=== PATIENT | male | born 1995 | race African-American/Black ===

== ENCOUNTER 2018-12-03 16:08 | Emergency (ER) | payer MEDICAID, SELFPAY ==
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
[2018-12-03] MEDS ORDERED: Ketorolac Tromethamine 30 MG/ML VIAL ONE (16:59)
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
== END 2018-12-03 18:09 | disposition home or self-care (01) ==
LOC: ERS 16:08
DX: S02.651A Fracture of angle of right mandible, initial encounter for closed fracture (principal); S02.2XXA Fracture of nasal bones, initial encounter for closed fracture; W50.0XXA Accidental hit or strike by another person, initial encounter
CPT/HCPCS: 70450; 70486; 96372; J1885

== ENCOUNTER 2018-12-06 10:46 | Day surgery (SDC) | payer MEDICAID ==
[2018-12-05 16:00] VITALS: BMI 25.2
[~2018-12-06 10:46] MED LIST: Dexamethasone 20 MG/5 ML VIAL ONE; Ketorolac Tromethamine 30 MG/ML VIAL ONE; Ondansetron PF 4 MG/2 ML Vial ONE; PROPOFOL 200 MG/20 ML VIAL ONE; Succinylcholine Chloride 20 MG/ML 10 ml SYRINGE FS ONE
[2018-12-06] MEDS ORDERED: Dexamethasone 4 mg/ml Vial ONE (11:12)
[2018-12-06] MEDS ORDERED: Clindamycin/D5W 900 mg/50 ml Premix Bag ONE (11:27)
[2018-12-06] MEDS ORDERED: Lidocaine 1% w/Epinephrine 1:100K 20 ML VIAL ONE (12:00)
[2018-12-06] MEDS ORDERED: Chlorhexidine Gluconate 15 ML UDCUP SSP ONE (12:03)
[2018-12-06] MEDS ORDERED: Fentanyl 250 MCG/5 ML VIAL ONE (12:23)
[2018-12-06] MEDS ORDERED: Oxymetazoline HCl 0.05% ( 15 ML ) ONE (12:23)
[2018-12-06] MEDS ORDERED: Bacitracin Zinc Ointment 30 gm TUBE ONE (14:48)
[2018-12-06] MEDS ORDERED: Promethazine HCl 25 MG/ML VIAL SLOW IVP PRN (15:25)
[2018-12-06] MEDS ORDERED: Ondansetron HCl/PF 4 MG/2 ML Vial IVP PRN (15:25)
[2018-12-06] MEDS ORDERED: Promethazine HCl 25 MG/ML VIAL IM PRN (15:25)
[2018-12-06] MEDS ORDERED: Fentanyl 100 MCG/2 ML VIAL ONE (15:27)
[2018-12-06] MEDS ORDERED: Promethazine HCl 25 MG/ML VIAL ONE (15:51)
[2018-12-06] MEDS ORDERED: Ondansetron PF 4 MG/2 ML Vial IVP PRN (15:55)
[2018-12-06] MEDS ORDERED: Morphine 4 MG/ML VIAL SLOW IVP PRN (15:55)
[2018-12-06] MEDS: Ibuprofen 100 MG/5 ML UDCUP PO SCH (18:04)
[2018-12-06] MEDS: D5 0.9% NS w/ 20 mEq KCl 1,000 ML IV SCH (18:05)
[2018-12-06] MEDS: Dexamethasone 4 mg/ml Vial SLOW IVP SCH ×2 (18:05→22:15)
--- NOTE | 2018-12-06 19:24 | CT ---
CT OF FACIAL BONES PERFORMED WITHOUT CONTRAST ENHANCEMENT: 12/06/18 COMPARISON: A 12/03/18 study. HISTORY: Followup of open reduction internal fixation of a mandibular fracture. Nasal bone fractures are again noted. Zygomatic arches are intact. Mucosal change within the sinuses are seen. There has been a fixation of the mandibular fracture with plate and screws. One plate extends across the angle of the mandible and holds this fracture in good position. The second plate holds the left p arasymphyseal fracture in place. Condyles are in normal position. IMPRESSION: Open reduction internal fixation of a mandibular fracture which appears to be in fairly good alignmen t. POS: [facility]
[2018-12-06] MEDS: Hydrocodone-Acetamin 15 ML UDCUP PO PRN ×2 (19:30→23:57)
[2018-12-06] MEDS: Clindamycin/D5W 900 MG in Premix Bag 1 BAG IVPB SCH (22:15)
[2018-12-06] MEDS: Chlorhexidine Gluconate 15 ML UDCUP SSP SCH (22:15)
[2018-12-07] MEDS: Ibuprofen 100 MG/5 ML UDCUP PO SCH ×2 (00:11→10:53)
[2018-12-07] MEDS: Clindamycin/D5W 900 MG in Premix Bag 1 BAG IVPB SCH ×2 (05:23→14:22)
[2018-12-07] MEDS: Dexamethasone 4 mg/ml Vial SLOW IVP SCH ×3 (05:23→11:00)
[2018-12-07] MEDS: D5 0.9% NS w/ 20 mEq KCl 1,000 ML IV SCH (09:36)
[2018-12-07] MEDS: Hydrocodone-Acetamin 15 ML UDCUP PO PRN (09:37)
[2018-12-07] MEDS: Chlorhexidine Gluconate 15 ML UDCUP SSP SCH ×2 (09:39→10:53)
[2018-12-07] MEDS: Famotidine/PF 20 mg/2ml Vial SLOW IVP SCH ×2 (09:39→11:00)
[2018-12-07 15:20] VITALS: BP 117/71; TEMP 97.6
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
== END 2018-12-07 13:30 | disposition home or self-care (01) ==
LOC: SDC 10:46 → SURG B 16:51 → UNDOADMOB 16:51 → SDC 12-07 13:30 → UNDODISOB 12-07 13:30
PROVIDERS: ATTEND Dentist Oral and Maxillofacial Surgery
PROC: 0NSV04Z Reposition Left Mandible with Internal Fixation Device, Open Approach (ICD-10-PCS; principal; 2018-12-06)
PROC: 0NST04Z Reposition Right Mandible with Internal Fixation Device, Open Approach (ICD-10-PCS; principal; 2018-12-06)
DX: S02.651B Fracture of angle of right mandible, initial encounter for open fracture (principal); S02.602B Fracture of unspecified part of body of left mandible, initial encounter for open fracture; Z79.899 Other long term (current) drug therapy; Y04.0XXA Assault by unarmed brawl or fight, initial encounter
CPT/HCPCS: 70486; C1713; J1100; J1885; J2001; J2405; J2550; J2704; J3010; J3490; S0028